=== PATIENT | female | born 1980 | race Hispanic/Latino ===

== ENCOUNTER 2025-01-16 10:20 | Emergency (ER) | payer SELFPAY ==
[~2025-01-16] VITALS: Ht 147.3 cm; Wt 59.0 kg
[2025-01-16 11:19] VITALS: BP 132/74; PULSE 92; RESP 16; TEMP 97.5; O2SAT 98
[2025-01-16 12:07] LABS: ADD UA MICROSCOPIC YES
[2025-01-16 12:08] LABS: APPEARANCE,URINE CLEAR (CLEAR); BILIRUBIN,URINE NEGATIVE (NEGATIVE); COLOR,URINE LIGHT-YELLOW (YELLOW); GLUCOSE, URINE (UA) >=1000 mg/dL (NEGATIVE); KETONES,URINE 5 mg/dL (NEGATIVE); LEUKOCYTE ESTERASE ,URINE 250 Leu/uL (NEGATIVE); MUCUS,URINE RARE LPF (None Seen); NITRATE,URINE NEGATIVE (NEGATIVE); OCCULT BLOOD,URINE NEGATIVE (NEGATIVE); PROTEIN,URINE NEGATIVE (NEGATIVE); SQUAMOUS EPITHELIAL CELL,UR FEW /HPF (0-2); UROBILINOGEN,URINE 0.2 mg/dL (0.2-1.0)
[2025-01-16] MEDS: HYDROcodone/APAP 5/325 1 TAB TABLET PO ONE (12:33)
[2025-01-16] MEDS: ketOROlac 30MG VIAL (30MG/ML) IM ONE (12:33)
--- NOTE | 2025-01-16 13:30 | HMCIMG ---
ULTRASOUND OF THE PELVIS ULTRASOUND ABD VASCULAR LIMITED INDICATION: Pelvic pain COMPARISONS: None TECHNIQUE: Transabdominal real-time sonographic images were acquired earlier, and subsequently made available for review. FINDINGS: Uterus is surgically absent. Right ovary is obscured by overlying bowel gas. The left ovary measures 2.5 x 0.7 x 1.7 cm. The left ovary is normal in size, shape and echogenicity. No left adnexal masses demonstrated. Color Doppler flow is normal throughout the left ovary. Spectral Doppler analysis demonstrates a normal waveform pattern. No free pelvic fluid demonstrated. IMPRESSION: No acute pelvic abnormality noted.
--- NOTE | 2025-01-16 13:55 | ERN ---
General Chief Complaint: Vaginal Problems/Bleeding Stated Complaint: ITCHING, BLEEDING VAGINA Time Seen by MD: 10:24 Time Seen by Midlevel: 10:24 Source: patient History of Present Illness Initial Comments Patient is a 44-year-old female presenting to the emergency department with multiple complaints. Patient reports urinary frequency, dysuria, and vaginal itching. She noticed blood when wiping. History of hysterectomy and cholecystectomy. Denies any concern for a sexually transmitted disease but states she would like to be checked. Denies any other symptoms Allergies: Coded Allergies: No Known Drug Allergies (Unverified Allergy, Unknown, 01/16/25) Past Medical History Past Medical History: Diabetes-Type II, Hypertension Past Surgical History: Hysterectomy, Cholecystectomy ROS Dictation CONSTITUTIONAL: Negative except for HPI HEAD/FACE: Negative except for HPI EENT: Negative except for HPI RESPIRATORY: Negative except for HPI GASTROINTESTINAL/ABDOMINAL: Negative except for HPI GENITOURINARY: Negative except for HPI MUSCULOSKELETAL: Negative except for HPI INTEGUMENTARY: Negative except for HPI NEUROLOGICAL/PSYCH: Negative except for HPI HEMATOLOGIC/LYMPHATIC: Negative except for HPI All Systems Negative, Except as noted above. 13 point review of systems assessed and all negative except for above. Physical Exam Physical Exam Dictation Vital Signs reviewed General Appearance: Alert, oriented x 3, no acute distress, well developed, nourished. Head and Face: non-traumatic. Eyes: PERRL, pink conjunctivas, eyelid no trauma, anterior chamber with arcus senilis. Ears: Pinnas intact and no signs of trauma or erythema ear canals clear and no discharge TM no erythema Nose: No discharge, no bleeding. Oropharynx: Mouth normal, tongue pink, pharynx clear,no erythema, tonsils no exudates, no abscesses noted, mucous membrane moist Neck: Supple, non-tender, no thyromegaly, no masses, no JVD, no bruits Breast:Deferred Chest:No tenderness, no crepitus, no paradoxical movement, no retractions Lungs:Clear, well-ventilated, symmetric, no rales, no wheezing, no rhonchi, no stridor, good breath sounds bilaterally Heart: Regular rate, regular rhythm, no murmur, no gallops Vascular: no peripheral edema, Abdomen: Soft, positive bowel sounds, nondistended, no guarding, nontender, no rebound, no masses no hepatomegaly, no splenomegaly, no Gutiérrez's sign, no hernias. Rectal: Deferred Genital: Deferred Neurological: Normal speech, motor function intact, sensory function intact Musculoskeletal: Neck nontender, full range of motion, back nontender, full range of motion, Extremities: nontender, full range of motion Skin: Color pink, dry, no turgor, no rash, no lacerations, no abrasions, no contusions. Lymphatic: Deferred Results Laboratory and Microbiology Lab and Micro Result Laboratory Tests Test 01/16/25 10:56 Urine Color LIGHT-YELLOW (YELLOW) Urine Appearance CLEAR (CLEAR) Urine pH 6.0 (5.0-8.0) Urine Specific [place] 1.038 (1.001-1.031) Urine Protein NEGATIVE mg/dL (NEGATIVE) Urine Glucose (UA) >=1000 mg/dL (NEGATIVE) H Urine Ketones 5 mg/dL (NEGATIVE) H Urine Occult Blood NEGATIVE (NEGATIVE) Urine Nitrate NEGATIVE (NEGATIVE) Urine Bilirubin NEGATIVE mg/dL (NEGATIVE) Urine Urobilinogen 0.2 mg/dL (0.2-1.0) Urine Leukocyte Esterase 250 Adeola/uL (NEGATIVE) H Urine RBC 6-10 /HPF (0-1) H Urine WBC 6-10 /HPF (0-1) H Urine Squamous Epithelial Cells FEW /HPF (0-2) Urine Bacteria None /HPF (None Seen) Labs Reviewed?: Yes MDM MDM: Differential diagnosis: Urinary tract infection, sexually transmitted disease, pre menopause There are no social concerns with this patient. Prescription drug management Prescriptions will include: None Medical management and examination interpretation discussions were had by me with other qualified healthcare professionals as indicated for the patient's care. ED Course Orders Procedure Category Date Status Time Urinalysis Profile LAB 01/16/25 Complete 10:49 Hydrocodone/Apap PHA 01/16/25 Complete 5/325 (Ranchita 5/325mg) 12:30 Ketorolac PHA 01/16/25 Complete Tromethamine 30mg/Ml 12:30 Chlamydia & Gc Pcr ANGIE 01/16/25 In Process 12:04 Culture Urine ANGIE 01/16/25 In Process 12:08 Us Pelvic Non-Ob US 01/16/25 Resulted Limited 12:50 Current Medications Medications (Trade) Dose Ordered Sig/Shireen Route PRN Reason Start Time Stop Time Status Last Admin Dose Admin Acetaminophen/ Hydrocodone Bitart (NORco 5/325MG) 1 tab ONCE ONCE PO 01/16/25 12:30 01/16/25 12:31 DC 01/16/25 12:33 Ketorolac Tromethamine (toRADol) 30 mg ONCE ONCE IM 01/16/25 12:30 01/16/25 12:31 DC 01/16/25 12:33 Vital Signs Date Time Temp Pulse Resp B/P (MAP) Pulse Ox O2 Delivery O2 Flow Rate FiO2 01/16/25 11:19 97.5 92 16 132/74 98 Room Air* 0 21 01/16/25 10:46 97.5 117 16 120/79 96 Room Air 0 DX & DISP Disposition: Discharge Departure Impression: Primary Impression: Vaginal bleeding Condition: Stable Additional Instructions: Your urine sample does not show any evidence of a urinary tract infection. You were tested for chlamydia and gonorrhea however these results do not come back until 3-5 days. We will call you with the results. Your pelvic ultrasound is normal. You need to follow up with an OBGYN for further evaluation. Referrals: SELF,REFERRAL (PCP) ENE GZUMAN MD, JAROD N MD Time of Disposition: 13:52 I have reviewed the case, and I agree with, Diagnosis and Plan I performed the substantive portion of the visit. I have reviewed and personally made and approve the management plan that is documented in the note by myself or the HOWARD. I acknowledge for responsibility for the patient's management plan. CAS GUZMAN Jan 16, 2025 13:55
== END 2025-01-16 14:03 | disposition home or self-care (01) ==
LOC: EDH 10:20
DX: N93.9 Abnormal uterine and vaginal bleeding, unspecified (principal); E11.9 Type 2 diabetes mellitus without complications; I10 Essential (primary) hypertension; Z90.49 Acquired absence of other specified parts of digestive tract; Z90.710 Acquired absence of both cervix and uterus
CPT/HCPCS: 99285; 76857; 87086; 87491; 87591; 81001; 96372; J1885